=== PATIENT | male | born 1995 | race Caucasian/White ===

== ENCOUNTER 2017-05-05 13:06 | Emergency (ER) | payer MEDICAID, OTHER ==
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
[2017-05-05] MEDS ORDERED: Sulfamethoxazole/TMP 800/160mg Tab PO ONE (14:48)
[2017-05-05] MEDS ORDERED: Sulfamethoxazole/TMP 800/160mg Tab ONE (14:52)
--- NOTE | 2017-05-06 08:16 | Diagnostic Imaging Report ---
Right hand (4 views) HISTORY: Pain, trauma There is a subtle calcific density adjacent to the medial aspect of the fifth carpal metacarpal joint region. This may be chronic. A small avulsion fracture cannot be excluded. Clinical correlation is needed. In the presence of recent trauma and persistent symptoms, a repeat radiograph in 5-7 days may be helpful for detection of a subtle or occult fracture. IMPRESSION: 1. Questionable faint calcification adjacent to the fifth carpometacarpal joint. This is probably chronic. However, a small avulsion fracture cannot be excluded. In the presence of recent trauma and persistent symptoms, a repeat radiograph in 5-7 days may be helpful.
--- NOTE | 2017-05-06 08:17 | Diagnostic Imaging Report ---
Right wrist (4 views) HISTORY: Pain, trauma Normal bone density. There is a faint calcific density adjacent to the medial aspect of the fifth carpometacarpal joint. Findings questionable significance. A small avulsion fracture cannot be definitely excluded. Clinical correlation is needed. If necessary, a repeat radiograph in 5-7 days may be helpful if symptoms persist. IMPRESSION: 1. Questionable faint calcification adjacent to the fifth metacarpal carpal joint. A small avulsion fracture cannot be definitely excluded. In the presence of recent trauma and persistent symptoms, a repeat radiograph in 5-7 days may be helpful.
== END 2017-05-05 15:20 | disposition home or self-care (01) ==
LOC: ER 13:06
DX: S62.346A Nondisplaced fracture of base of fifth metacarpal bone, right hand, initial encounter for closed fracture (principal); V19.9XXA Pedal cyclist (driver) (passenger) injured in unspecified traffic accident, initial encounter; Y93.89 Activity, other specified; Y92.488 Other paved roadways as the place of occurrence of the external cause; Y99.8 Other external cause status
CPT/HCPCS: 73110-TC-RT; 73130-TC-RT; Z7502